=== PATIENT | female | born 1955 | race African-American/Black ===

== ENCOUNTER → 2017-05-23 | Outpatient (CLI) | payer OTHER ==
[~2017-05-23] MED LIST: LORTAB 5/500 501 TAB PO; NO HOME MEDICATIONS; NORCO 325 MG-51 TAB PO; PRINIVIL20 MG PO
== END ==
LOC: MC.RAD 05-22 14:20
DX: Z12.31 Encounter for screening mammogram for malignant neoplasm of breast (principal)

== ENCOUNTER 2018-02-25 10:31 | Day surgery (SDC) | payer BC ==
[~2018-02-25] VITALS: Ht 160 cm; Wt 89.5 kg
[2018-02-25] MEDS ORDERED: NORVASC 5MG5 MG/TAB PO (11:12)
[2018-02-25] MEDS ORDERED: ASPIRIN 81M81 MG/TA2 PO (11:12)
[2018-02-25] MEDS ORDERED: FISH OIL 500 M1 EAC1 PO (11:12)
[2018-02-25] MEDS ORDERED: PRENATAL MULTIV1 KIT PO (11:13)
[2018-02-25 11:14] VITALS: BP 164/104; PULSE 85; TEMP 98.6
[2018-02-25 15:30] VITALS: BP 125/71; PULSE 64; TEMP 97.6
[2018-02-25 15:45] VITALS: BP 128/66; PULSE 60
[2018-02-25 16:00] VITALS: BP 124/75; PULSE 77
[2018-02-25 16:15] VITALS: BP 142/92; PULSE 67
== END 2018-02-25 17:20 | disposition home or self-care (01) ==
LOC: SDCO 10:31
DX: K43.0 Incisional hernia with obstruction, without gangrene (principal); I10 Essential (primary) hypertension; E66.9 Obesity, unspecified; M17.11 Unilateral primary osteoarthritis, right knee; K21.9 Gastro-esophageal reflux disease without esophagitis; F41.9 Anxiety disorder, unspecified; Z79.82 Long term (current) use of aspirin
CPT/HCPCS: C1713; C1781; J0330; J0690; J1100; J1885; J2250; J2405; J2704; J2710; J3010; J7120

== ENCOUNTER → 2018-06-24 | Outpatient (CLI) | payer BC ==
[~2018-06-24] MED LIST changes: +ASPIRIN 81M81 MG/TA2 PO; +FISH OIL 500 M1 EAC1 PO; +NORVASC 5MG5 MG/TAB PO; +PRENATAL MULTIV1 KIT PO
== END ==
LOC: MC.RAD 09:34
DX: Z12.31 Encounter for screening mammogram for malignant neoplasm of breast (principal)

== ENCOUNTER 2019-04-14 15:15 | Outpatient (RCR) | payer OTHER | END 2019-04-15 15:58 | disposition home or self-care (01) | LOC: WSOH 15:15 | DX: S80.01XA Contusion of right knee, initial encounter (principal); S39.011A Strain of muscle, fascia and tendon of abdomen, initial encounter; S50.311A Abrasion of right elbow, initial encounter; W01.190A Fall on same level from slipping, tripping and stumbling with subsequent striking against furniture, initial encounter; Y92.219 Unspecified school as the place of occurrence of the external cause; I10 Essential (primary) hypertension; M17.11 Unilateral primary osteoarthritis, right knee; M25.461 Effusion, right knee ==

== ENCOUNTER → 2019-07-21 | Outpatient (CLI) | payer BC | LOC: MC.RAD 16:10 | DX: Z12.31 Encounter for screening mammogram for malignant neoplasm of breast (principal) ==

== ENCOUNTER → 2020-08-05 | Outpatient (CLI) | payer BC | LOC: MC.RAD 07-26 17:00 | DX: Z12.31 Encounter for screening mammogram for malignant neoplasm of breast (principal) ==

== ENCOUNTER → 2021-09-27 | Outpatient (CLI) | payer BC | LOC: MC.RAD 14:41 | DX: Z12.31 Encounter for screening mammogram for malignant neoplasm of breast (principal) ==

== ENCOUNTER → 2022-11-20 | Outpatient (CLI) | payer BC | LOC: MC.RAD 16:28 | DX: Z12.31 Encounter for screening mammogram for malignant neoplasm of breast (principal) ==